=== PATIENT | female | born 1985 | race African-American/Black ===

== ENCOUNTER 2023-01-20 23:45 | Emergency (ER) | payer MEDICAID ==
[~2023-01-20] VITALS: Ht 162.6 cm; Wt 66.0 kg
[2023-01-21 00:06] VITALS: BP 122/90; PULSE 96; RESP 18; TEMP 100; O2SAT 97
[2023-01-21] MEDS ORDERED: GUAI177L6 MT (01:41)
[2023-01-21 03:11] LABS: CLARITY URINE CLEAR (CLEAR); COLOR URINE YELLOW (YELLOW); GLUCOSE URINE NEGATIVE (NEGATIVE); KETONES URINE TRACE (NEGATIVE); LEUKOCYTE ESTERASE URINE 1+ (NEGATIVE); NITRITE URINE NEGATIVE (NEGATIVE); OCCULT BLOOD URINE NEGATIVE (NEGATIVE); PROTEIN URINE 2+ (NEGATIVE); SPECIFIC GRAVITY URINE 1.013 (1.005-1.030)
[2023-01-21 03:36] LABS: HEMOGLOBIN. 11.7 g/dL (12.0-16.0); MEAN CORPUSCULAR HEMOGLOBIN 28.6 pg (28.0-32.0); MEAN CORPUSCULAR HGB CONC 33.5 g/dL (31.0-37.0); MEAN CORPUSCULAR VOLUME 85.3 fL (81.0-99.0); MEAN PLATELET VOLUME 6.4 fl (7.4-10.4); PLATELET 388 x1000/uL (130-400); RED BLOOD CELL COUNT 4.11 mill/uL (4.2-5.4); RED CELL DISTRIBUTION WIDTH 16.9 % (11.6-14.6); WHITE BLOOD COUNT 12.1 x1000/uL (4.5-11.0)
[2023-01-21 03:41] LABS: DIFFERENTIAL COMMENT 1
[2023-01-21] MEDS ORDERED: ACETAMINOPHEN 325MG TABLET PO ONE (04:00)
[2023-01-21] MEDS ORDERED: ONDANSETRON 4MG ODT PO ONE (04:00)
[2023-01-21 04:04] LABS: ALANINE AMINOTRANSFERASE 15 IU/L (13-61); ALBUMIN 2.9 g/dL (3.4-5.0); ASPARTATE AMINOTRANSFERASE 16 IU/L (15-37); BILIRUBIN TOTAL 0.6 mg/dL (0.1-1.0); CALCIUM 9.1 mg/dL (8.5-10.1); CARBON DIOXIDE 25 mEq/L (21-32); CHLORIDE 94 mEq/L (98-107); CREATININE 0.9 mg/dL (0.6-1.3); GLUCOSE 149 mg/dL (70-105); INDEX HEMOLYSI 1 (1-3); INDEX ICTERIC 1 (1-4); INDEX LIPEMIC 1 (1-3); POTASSIUM 3.3 mEq/L (3.5-5.1); PROTEIN TOTAL 7.9 g/dL (6.0-8.3); SODIUM 130 mEq/L (136-145); UREA NITROGEN BLOOD 7 mg/dL (7-21)
[2023-01-21] MEDS ORDERED: POTASSIUM CHLORIDE 20MEQ/PACKET PO NR (04:15)
[2023-01-21 04:22] LABS: BACTERIA URINE TRACE; RBC URINE 0-2 /hpf (0-2); SQUAMOUS EPITHELIAL CELL URINE FEW /lpf (RARE/1+)
[2023-01-21 04:29] LABS: PLATELET ESTIMATE NORMAL
[2023-01-21] MEDS ORDERED: TETRACAINE 0.5% OPHTH DROPS 4ML BOTHEYE ONE (05:15)
[2023-01-21] MEDS ORDERED: FLUORESCEIN SODIUM 1MG/STRIP BOTHEYE ONE (05:15)
[2023-01-21] MEDS ORDERED: ACET-2708 MT (06:10)
[2023-01-21] MEDS ORDERED: ERYT1OIN6 EACHEYE (06:10)
[2023-01-21] MEDS ORDERED: ONDA4TAB50 MT (06:10)
== END 2023-01-21 06:00 | disposition home or self-care (01) ==
LOC: ER 23:54
DX: B34.9 Viral infection, unspecified (principal); E87.6 Hypokalemia; R11.2 Nausea with vomiting, unspecified; R51.9 Headache, unspecified; H10.89 Other conjunctivitis; R19.7 Diarrhea, unspecified; Z20.822 Contact with and (suspected) exposure to COVID-19
CPT/HCPCS: 99284; 87426; 80053; 81003; 83690; 85025; 87804 ×2; 36415; Q0162; C9803; 99283

== ENCOUNTER 2023-03-03 15:00 | Emergency (ER) | payer MEDICAID ==
[~2023-03-03] VITALS: Ht 162.6 cm; Wt 69.0 kg
[~2023-03-03 15:00] MED LIST: ACET-2708 MT; ERYT1OIN6 EACHEYE; ONDA4TAB50 MT
[2023-03-03 15:19] VITALS: O2SAT 98
[2023-03-03 16:31] LABS: BASOPHILS % 0.8 % (0.0-2.0); EOSINOPHILS % 4.5 % (0.0-5.0); HEMATOCRIT. 29.6 % (36.0-48.0); HEMOGLOBIN. 9.6 g/dL (12.0-16.0); LYMPHOCYTES % 40.8 % (20.0-50.0); MEAN CORPUSCULAR HEMOGLOBIN 28.6 pg (28.0-32.0); MEAN CORPUSCULAR HGB CONC 32.6 g/dL (31.0-37.0); MEAN CORPUSCULAR VOLUME 87.6 fL (81.0-99.0); MEAN PLATELET VOLUME 6.2 fl (7.4-10.4); MONOCYTES % 6.4 % (2.0-8.0); NEUTROPHILS % 47.5 % (40.0-76.0); PLATELET 459 x1000/uL (130-400); RED BLOOD CELL COUNT 3.38 mill/uL (4.2-5.4); RED CELL DISTRIBUTION WIDTH 17.9 % (11.6-14.6); WHITE BLOOD COUNT 6.3 x1000/uL (4.5-11.0)
[2023-03-03 16:48] LABS: CHLORIDE 110 mEq/L (98-107); INDEX HEMOLYSI 1 (1-3); INDEX ICTERIC 1 (1-4); INDEX LIPEMIC 1 (1-3); POTASSIUM 3.5 mEq/L (3.5-5.1); SODIUM 143 mEq/L (136-145)
[2023-03-03 16:58] LABS: ALANINE AMINOTRANSFERASE 26 IU/L (13-61); ALBUMIN 3.5 g/dL (3.4-5.0); ASPARTATE AMINOTRANSFERASE 28 IU/L (15-37); BILIRUBIN TOTAL 0.5 mg/dL (0.1-1.0); CALCIUM 8.3 mg/dL (8.5-10.1); ETHANOL BLOOD 252 mg/dL (<10); GLUCOSE 80 mg/dL (70-105); PROTEIN TOTAL 7.3 g/dL (6.0-8.3); UREA NITROGEN BLOOD 6 mg/dL (7-21)
[2023-03-03 17:06] LABS: CARBON DIOXIDE 28 mEq/L (21-32)
[2023-03-03] MEDS ORDERED: SODIUM CHLORIDE 0.9% 1,000 ML IV ONE (18:45)
[2023-03-03 21:03] LABS: CLARITY URINE CLEAR (CLEAR); COLOR URINE YELLOW (YELLOW); GLUCOSE URINE NEGATIVE (NEGATIVE); KETONES URINE NEGATIVE (NEGATIVE); LEUKOCYTE ESTERASE URINE NEGATIVE (NEGATIVE); NITRITE URINE NEGATIVE (NEGATIVE); OCCULT BLOOD URINE NEGATIVE (NEGATIVE); PROTEIN URINE NEGATIVE (NEGATIVE); SPECIFIC GRAVITY URINE 1.021 (1.005-1.030)
[2023-03-03 21:23] LABS: *BARBITURATES SCREEN URINE NEGATIVE (NEGATIVE); *BENZODIAZEPINES SCREEN URINE NEGATIVE (NEGATIVE); *COCAINE SCREEN URINE NEGATIVE (NEGATIVE); ECSTASY MDMA SCREEN URINE NEGATIVE (NEGATIVE); METHADONE URINE SCREEN NEGATIVE (NEGATIVE); OPIATES URINE SCREEN NEGATIVE (NEGATIVE); PHENCYCLIDINE URINE SCREEN NEGATIVE (NEGATIVE)
[2023-03-03 21:36] LABS: *AMPHETAMINES SCREEN URINE PRESUMTIVE POSITIVE (NEGATIVE); CANNABINOID URINE SCREEN PRESUMTIVE POSITIVE (NEGATIVE)
[2023-03-04] MEDS: OLANZAPINE 5MG TABLET ODT PO SCH ×2 (10:53→17:00)
[2023-03-04] MEDS ORDERED: DIPHENHYDRAMINE 25MG CAPSULE PO NR (21:15)
[2023-03-04] MEDS ORDERED: DIPHENHYDRAMINE 50MG CAPSULE PO ONE (21:15)
[2023-03-05] MEDS: OLANZAPINE 5MG TABLET ODT PO SCH ×2 (09:55→19:52)
[2023-03-05] MEDS: TRAZODONE HCL 50MG TABLET PO SCH (21:56)
[2023-03-06] MEDS: OLANZAPINE 5MG TABLET ODT PO SCH ×2 (12:59→18:50)
[2023-03-06] MEDS: TRAZODONE HCL 50MG TABLET PO SCH (21:30)
[2023-03-07] MEDS: OLANZAPINE 5MG TABLET ODT PO SCH (09:44)
[2023-03-07 10:51] VITALS: BP 121/80; PULSE 74; RESP 16; TEMP 98.4
== END 2023-03-07 14:30 | disposition home or self-care (01) ==
LOC: ER 15:00
DX: R45.851 Suicidal ideations (principal); Z20.822 Contact with and (suspected) exposure to COVID-19
CPT/HCPCS: 80053; 80305; 81003; 81025; 80307; 80329; 80320; 82962; 85025; 36415; 99285; 87426; C9803; Q0163; Z7610 ×2; G0480